=== PATIENT | female | born 1955 | race Caucasian/White ===

== ENCOUNTER 2016-12-31 15:54 | Emergency (ER) | payer BC ==
[2016-12-31] MEDS ORDERED: ASPIRIN 81 MG (BABY) CHEWABLE TABLET PO ONE (16:09)
[2016-12-31] MEDS ORDERED: Sodium Chloride 0.9% 1,000 ML PRIMARY IV ONE (16:09)
[2016-12-31] MEDS ORDERED: MAG HYDROX/AL HYDROX/SIMETH 30 ML SUSP PO ONE (16:09)
[2016-12-31] MEDS ORDERED: Pantoprazole Inj 40 MG in Normal Saline Flush 10 ML IVP ONE (16:09)
[2016-12-31] MEDS ORDERED: NORMAL SALINE 10 ML SYRINGE FLUSH IVP PRN (16:09)
--- NOTE | 2016-12-31 16:13 | EKG ---
[address] [address] Measurements Intervals [place] Rate: 83 P: 69 WA: 133 QRS: 91 QRSD: 93 T: 70 QT: 381 QTc: 421 Interpretive Statements SINUS RHYTHM BORDERLINE RIGHT AXIS DEVIATION [QRS AXIS > 90] MINIMAL VOLTAGE CRITERIA FOR LVH, CONSIDER NORMAL VARIANT [MEETS CRITERIA IN ONE OF: R(aVL), S(V1), R(V5), R(V5/V6)+S(V1)] MINIMAL ST DEPRESSION [0.025+ mV ST DEPRESSION] Inferior leads INTERPRETATION BASED ON A DEFAULT AGE OF 40 YEARS Compared to ECG 01/02/2015 16:37:37 ST (T wave) deviation now present Electronically Signed On 01-01-17 10:56:19 MDT by Rey Gonzalez MD [email or web address]
[2016-12-31 16:17] LABS: BASOPHILS # (AUTO) 0.13 10*3/UL; BASOPHILS % (AUTO) 1.6 % (0-1); EOSINOPHILS % (AUTO) 1.2 % (0-8); HEMOGLOBIN 13.6 g/dL (12.0-16.0); LYMPHOCYTES # (AUTO) 1.75 10*3/uL; MEAN CORPUSCULAR HEMOGLOBIN 28.5 PG (27-31); MEAN CORPUSCULAR HGB CONC 32.4 g/dL (33-37); MEAN CORPUSCULAR VOLUME 87.9 FL (81-99); MEAN PLATELET VOLUME 10.4 FL (7.4-12.2); MONOCYTES % (AUTO) 7.2 % (5-15); NEUTROPHILS # (AUTO) 5.71 10*3/UL; NEUTROPHILS % (AUTO) 68.8 % (50-80); RED BLOOD COUNT 4.78 10^6/uL (4.20-5.40)
[2016-12-31 16:18] LABS: PLATELET MORPHOLOGY COMMENT NORMAL MORPHOLOGY (NORM); RBC MORPHOLOGY COMMENT NORMAL MORPHOLOGY (NORM); WBC MORPHOLOGY COMMENT NORMAL MORPHOLOGY (NORM)
[2016-12-31 16:24] LABS: BLOOD UREA NITROGEN 25 mg/dL (7-22); BUN/CREATININE RATIO 35.71 (6-20); CALCIUM 10.1 mg/dL (8.7-10.7); EST GLOMERULAR FILTRATION > 60 (>60 ml/min/1.73m(2)); LIPASE 80 IU/L (23-300); MAGNESIUM 2.2 mg/dL (1.6-2.4); SERUM ALBUMIN 4.5 g/dL (3.5-4.8)
[2016-12-31 16:36] LABS: CREATINE KINASE MB 1.44 NG/ML (0.00-5.00)
[2016-12-31 16:38] LABS: TROPONIN I < 0.012 ng/mL (< 0.040)
--- NOTE | 2016-12-31 16:47 | DI ---
AP CHEST X-RAY, 12/31/2016 4:09 PM : Clinical History: Chest pain. Previous Exam: 09/16/2008. There is no acute soft tissue or bony abnormality. There is dextroscoliosis of the mid lumbar spine. Heart size is normal. Lungs are clear. Mediastinal structures are normal. There are no pulmonary nodu les. Reading: Normal chest x-ray.
[2016-12-31 17:19] VITALS: TEMP 98.3
--- NOTE | 2016-12-31 17:33 | PDOC ---
Chest Pain HPI - General Chief Complaint: Chest Pain Stated Complaint: CHEST PAIN Date Seen by Provider: 12/31/16 Time Seen by Provider: 16:05 - History of Present Illness Initial Comments: Patient is a very nice 61-year-old woman who presents to the emergency department with complaints of pain in the mid and right side of her chest that also goes into her back some. She also is feeling some tightness in a strange sensation in her right arm. She had this pain come on while she was driving home from [place]. She has never had any known cardiac disease. She is a nonsmoker she does not have hypertension no known hyperlipidemia she's not diabetic. She does however have positive family history of both her parents passing from cardiac disease. He is starting to feel a fair bit better upon arrival to the emergency department but still has some lingering right and low mid chest discomfort. - Patient Home Medications Home Medications: Home Medications Verapamil HCl [Verapamil Er Pm] 100 mg PO DAILY #90 cap 03/10/16 Amitriptyline HCl 1 tab PO QHS #90 tab 04/10/16 Riboflavin [Vitamin B-2] 50 mg PO DAILY tab 06/11/16 Cyclobenzaprine HCl 10 mg PO QHS #90 tab 07/03/16 Eletriptan Tab [Relpax Tab] 40 mg PO BID PRN #48 tab 12/15/16 - Patient Allergies Allergies/Adverse Reactions: Allergies Allergy/AdvReac Type Severity Reaction Status Date / Time clarithromycin Allergy Severe Chest Verified 12/31/16 16:25 burning, tightness, like cardiac symptoms. azithromycin [From Zithromax] Allergy Intermediate CHEST PAIN Verified 12/31/16 16:27 OR TIGHTNESS guaifenesin [From Breonesin] Allergy rash Verified 12/31/16 16:25 propoxyphene HCl Allergy nausea, Verified 12/31/16 16:25 [From Darvon] emotional Past Medical History - heen HEENT History: Denies History Cardiovascular History: Denies History Respiratory History: Denies History Gastrointestinal History: Denies History Genitourinary History: Denies History Endocrine History: Denies History Musculoskeletal History: Denies History Neurological History: Migraines Blood Disorders: Denies History Psychiatric History: Denies History History of Sexually Transmitted Diseases: No Female Reproductive History: Denies History Obstetrical History: Denies History Cancer History: Denies History In Past Year Been Physically Harmed or Verbally Threatened: No History of MDRO: No History of Other Communicable Diseases: No Tobacco Use: Never Smoker Alcohol Use: None Substance Use Type: None Previous Surgical History: Yes Type / Date of Surgery: LIZETT BUNIONECTOMY. LEFT KNEE SCOPE Anesthesia Reactions: No Malignant Hyperthermia: No Significant Family History: Heart disease Past Medical History Reviewed: Reviewed - No Changes ROS - Limitations ROS Limitations: No Limitations Constitution: REPORTS: Denies Symptoms Respiratory: REPORTS: Denies Resp Symptoms Neurological: REPORTS: Denies Neuro Symptoms Gastrointestinal: REPORTS: Denies GI Symptoms Chest Pain PE - General Appearance General Appearance: REPORTS: Alert, Cooperative, No Acute Distress - HEENT HEENT: POSITIVE: Head Inspection Nml, Eyes Inspection Nml - Neck Neck: REPORTS: Normal Inspection - Respiratory Respiratory: REPORTS: No Respiratory Distress, Breath Sounds Normal - Cardiovascular Cardiovascular: REPORTS: Regular Rate and Rhythm, Heart Sounds Normal - Abdomen Abdomen: Soft: (All Quadrants), Normal Bowel Sounds: (All Quadrants), Denies Tenderness: (All Quadrants) - Skin Skin: REPORTS: Intact, Normal For Race, Warm, Dry - Extremities Additional Extremities Details: Bilateral upper and lower extremities are benign without edema - Neurological / Psychological Neurological: POSITIVE: Affect Apporpriate, Oriented X3 Chest Pain Progress - Results Reviewed by me Xrays/CTs/US Reviewed by me: Yes Lab Results Reviewed: Yes Lab Results:: Laboratory Results 12/31/16 Range/Units 16:00 WBC 8.30 (4.8-10.8) 10^3/uL RBC 4.78 (4.20-5.40) 10^6/uL Hgb 13.6 (12.0-16.0) g/dL Hct 42.0 (37.0-47.0) % MCV 87.9 (81-99) FL MCH 28.5 (27-31) PG MCHC 32.4 L (33-37) g/dL RDW Std Deviation 42.8 (39-50) fL RDW Coeff of Gage 13.5 (11.5-14.5) % Plt Count 297 (140-350) 10*3/uL MPV 10.4 (7.4-12.2) FL Immature Gran % (Auto) 0.1 (0-5) % Neut % (Auto) 68.8 (50-80) % Lymph % (Auto) 21.1 (10-50) % [place] % (Auto) 7.2 (5-15) % Eos % (Auto) 1.2 (0-8) % Baso % (Auto) 1.6 H (0-1) % Immature Gran # (Auto) 0.01 10*3/UL Neut # (Auto) 5.71 10*3/UL Lymph # (Auto) 1.75 10*3/uL [place] # (Auto) 0.60 (0.3-0.8) 10*3/UL Eos # (Auto) 0.10 10*3/UL Baso # (Auto) 0.13 10*3/UL WBC Morphology Comment Normal morphology (NORM) Plt Morphology Comment Normal morphology (NORM) RBC Morph Comment Normal morphology (NORM) PT 10.0 (9.7-11.4) secs INR 0.94 (0.00-5.90) N/A D-Dimer 0.29 (0.00-0.59) mg/L Sodium 140 (135-145) meq/L Potassium 4.0 (3.8-5.2) meq/L Chloride 103 (98-112) meq/L Carbon Dioxide 26 (23-33) meq/L Anion Gap 11 (5-20) BUN 25 H (7-22) mg/dL Creatinine 0.7 (0.50-1.20) mg/dL Estimated GFR > 60 (>60 ml/min/1.73m(2)) BUN/Creatinine Ratio 35.71 H (6-20) Glucose 96 (78-110) mg/dL Calculated Osmolality 293.0 H (267-292) mOsm/kg Calcium 10.1 (8.7-10.7) mg/dL Magnesium 2.2 (1.6-2.4) mg/dL Total Bilirubin 0.4 (0.3-1.2) mg/dL AST 27 (8-39) IU/L ALT 37 (9-52) IU/L Alkaline Phosphatase 88 (38-126) IU/L CK-MB (CK-2) 1.44 (0.00-5.00) NG/ML Troponin I < 0.012 (< 0.040) ng/mL Total Protein 7.5 (6.1-8.0) g/dL Albumin 4.5 (3.5-4.8) g/dL Globulin 3.0 (2.50-4.10) g/dL Albumin/Globulin Ratio 1.50 (1.3-2.0) mg/g Lipase 80 (23-300) IU/L EKG Interpreted/Reviewed By Me:: Yes EKG Interpretation:: POSITIVE: Other (EKG has some nonspecific ST changes no obvious ischemia however.) - Patient's Progress MDM / ED Course: Patient is basically symptom-free at this point. She had a negative troponin as well as a normal CBC and CMP was benign as well. Her EKG shows some nonspecific ST segment changes. I discussed with the patient that the EKG was not completely normal and that I find no other evidence of any concerning findings on her labs are chest x-ray. I have recommended to the patient that she watch her symptoms closely and return if anything were to worsen or persist. She is also encouraged follow-up with her primary care provider in the near future to consider cardiac stress testing and/or echocardiogram and/or Holter monitoring especially if she has any return of symptoms. She also had a bit of elevated blood pressure will she was here but at the time of discharge she was right around 140/90 therefore I'm not to start any new medication for her but have her follow-up in the near future with her primary care provider for repeat blood pressure check. Patient Care Time - Estimated PCT Patient Care Time (In Minutes): 40 Vital Signs - Recent Vital Signs Vital Signs: Vital Signs (Last 8 hours) Temp Pulse Resp BP Pulse Ox 12/31/16 16:00 98.3 F 86 18 160/96 98 - VS Reviewed Vital Signs Reviewed: Yes Discharge Clinical Impression: Atypical chest pain Discharge Disposition: Discharged to Home Condition: Fair Patient Instructions Given at Discharge: Chest Pain (ED) Additional Instructions: Follow-up with your primary care provider in the next week to discuss your episode of chest pain and your emergency department visit Do not hesitate to return to the emergency department with any new symptoms any return of symptoms or any concerns at all Follow Up With: FELICITA SO [Primary Care Provider] -
[2016-12-31 17:58] VITALS: RESP 16
== END 2016-12-31 17:55 | disposition home or self-care (01) ==
LOC: ER 15:54
DX: R07.89 Other chest pain (principal); M79.601 Pain in right arm
CPT/HCPCS: 71010; 80053; 82553; 83690; 83735; 84484; 85025; 85379; 85610; 93005; 93010; 96374; 99284 ×2; J3490; J7030